=== PATIENT | female | born 1965 | race Caucasian/White ===

== ENCOUNTER → 2017-01-31 | Outpatient (CLI) | payer BC ==
--- NOTE | 2017-02-01 07:37 | US ---
EXAMINATION TYPE: US transvaginal DATE OF EXAM: 01/31/2017 COMPARISON: Previous study dated 04/01/2015. CLINICAL HISTORY: N95.0 Post menopausal bleeding. TECHNIQUE: Transvaginal (TV) Date of LMP: 3-4 years ago EXAM MEASUREMENTS: Uterus: 8.8 x 4.7 x 5.1 cm Endometrial Stripe: 0.3 cm Right Ovary: 3.3 x 2.4 x 2.2 cm Left Ovary: 1.8 x 1.1 x 1.1 cm 1. Uterus: Anteverted Heterogeneous echotexture 2. Endometrium: wnl 3. Right Ovary: Cyst visualized measuring 2.1 x 1.8 x 1.6 cm 4. Left Ovary: wnl 5. Bilateral Adnexa: wnl 6. Posterior cul-de-sac: wnl There is a nabothian cyst in the anterior lip of the cervix. IMPRESSION: 1. HETEROGENOUS UTERUS MAY REFLECT ADENOMYOSIS. 2. NABOTHIAN CYSTS. 3. 2.1 CM RIGHT OVARIAN CYST, LIKELY PHYSIOLOGIC.
== END | disposition home or self-care (01) ==
LOC: RADUSMAIN 17:51
PROVIDERS: ATTEND Family Medicine
DX: N88.8 Other specified noninflammatory disorders of cervix uteri (principal); N83.201 Unspecified ovarian cyst, right side
CPT/HCPCS: 76830

== ENCOUNTER → 2017-02-24 | Outpatient (CLI) | payer BC ==
--- NOTE | 2017-02-24 12:16 | US ---
EXAMINATION TYPE: US transvaginal DATE OF EXAM: 02/24/2017 COMPARISON: US 2017 CLINICAL HISTORY: N95.0 POST MENOPAUSAL BLEEDING. Followup US from 01/31/2017 US. Patient stated had only one episode vaginal bleeding. TECHNIQUE: Transvaginal (TV) Date of LMP: Approximately 3-4 years ago EXAM MEASUREMENTS: Uterus: 8.0 x 5.5 x 4.8cm cm Endometrial Stripe: 0.7 cm Right Ovary: 2.3 x 1.9 x 1.3 cm Left Ovary: not seen today 1. Uterus: Anteverted ; multiple small Nabothian cysts in CX with largest = 06 x 0.7 x 0.4cm. 2. Endometrium: abnormally thickened as is > 0.5cm and measured in 2 views 3. Right Ovary: simple cyst = 0.8 x 1.0 x 1.3cm 4. Left Ovary: not identified today 5. Bilateral Adnexa: wnl 6. Posterior cul-de-sac: wnl IMPRESSION: 1. Abnormal endometrial thickening in a postmenopausal female. Further evaluation with direct visuali zation is suggested. This may represent endometrial hyperplasia, endometrial carcinoma, or endometria l polyp. 2. Right ovarian follicle. No right ovarian cyst. 3. Nonvisualization of the left ovary.
== END ==
LOC: RADUSWWP 11:00
PROVIDERS: ATTEND Family Medicine
DX: R93.8 Abnormal findings on diagnostic imaging of other specified body structures (principal)
CPT/HCPCS: 76830

== ENCOUNTER 2017-06-27 10:00 | Day surgery (SDC) | payer BC ==
[2017-06-23 11:18] VITALS: BMI 42.3
[~2017-06-27 10:00] MED LIST: LACTATED RINGERS 1,000 ML IV SCH; Pre Op ABX Message 1 EACH MISC MISCELLANE ONE
[2017-06-27] MEDS ORDERED: LIDOCAINE 1% 20 ML VIAL (10MG/ML) FOR IV START INTRADERMA ONE (11:28)
[2017-06-27] MEDS ORDERED: DEXAMETHASONE SOD PHOSPHATE 4 MG/ML 1 ML VIAL IVP ONE (11:32)
[2017-06-27] MEDS ORDERED: ONDANSETRON 4 MG/2 ML VIAL IVP ONE (11:34)
[2017-06-27] MEDS ORDERED: PROPOFOL 10 MG/ML 20 ML VIAL IV ONE (12:07)
[2017-06-27] MEDS ORDERED: fentaNYL (PF) 50 MCG/ML 2 ML AMP ONE (12:07)
[2017-06-27] MEDS ORDERED: MIDAZOLAM 2 MG/2 ML VIAL ONE (12:07)
[2017-06-27] MEDS ORDERED: ACETAMINOPHEN IV (For NPO) 1,000 MG/100 ML VIAL ONE (12:07)
[2017-06-27] MEDS ORDERED: LIDOCAINE 1% INJ 10MG/ML (20 ML MDV) ONE (12:07)
[2017-06-27] MEDS ORDERED: SILVER NITRATE APPLICATOR 1 EACH STICK..EA. TOPICAL ONE (12:26)
--- NOTE | 2017-06-27 12:33 | P.OP ---
Date of Procedure: 06/27/17 Preoperative Diagnosis: pmb Postoperative Diagnosis: same Anesthesia: MAC Surgeon: Kaitlyn Duarte Estimated Blood Loss (ml): 10 IV fluids (ml): 400 Urine output (ml): 25 Pathology: other (endometrial currettings) Condition: stable Disposition: PACU Indications for Procedure: PMB, normal emb done in the office with normal US Operative Findings: Normal appearing endometrial cavity Description of Procedure: Patient was taken to the operating room after informed consent was obtained in the preoperative area. Gen. anesthesia was then obtained by the anesthesia Department without difficulty. She was then prepped and draped in normal sterile fashion in the dorsal lithotomy position. Weighted speculum posterior vaginal vault and the red rubber catheter was used to drain the bladder cleared all urine. The anterior lip of the cervix was then grasped with a single-tooth tenaculum and endocervical canal was then dilated to a sound was used to obtain a length of 8 cm. At this time the endocervical canal was then dilated to [place] 18-Malaysian and hysteroscope was placed into the endometrial canal, toward the uterine cavity. A normal-appearing endometrial cavity was noted. Hysteroscope was removed and a sharp curettage was performed until gritty texture was noted in all 4 quadrants the uterine cavity. At this point the NovaSure device was opened and set to the appropriate measurements for the recent uterine cavity length of 47 years, with of 3.7 cm, a power of 81 with a time of 100 seconds was done after the cavity assessment was passed. Afterwards the device was removed without difficulty the tooth tenaculum was taken off of the cervix hemostasis was appreciated after silver nitrate was applied to tenaculum site. All counts were correct 2 patient tolerated procedure well, and she was then taken to the recovery room awake in stable condition.
[2017-06-27 12:47] VITALS: TEMP 97.8
[2017-06-27] MEDS ORDERED: HYDROmorphone 0.5 MG/0.5 ML SYRINGE IVP ONE ×4 (13:13→13:50)
[2017-06-27] MEDS ORDERED: LACTATED RINGERS 1,000 ML IV ONE (13:14)
[2017-06-27 14:30] VITALS: RESP 18
[2017-06-27 15:43] VITALS: BP 124/64; PULSE 66
== END 2017-06-27 15:57 | disposition home or self-care (01) ==
LOC: OR 10:00
PROVIDERS: ATTEND Obstetrics & Gynecology Obstetrics
DX: N95.0 Postmenopausal bleeding (principal); N87.9 Dysplasia of cervix uteri, unspecified; N72 Inflammatory disease of cervix uteri; Z88.6 Allergy status to analgesic agent; Z88.0 Allergy status to penicillin; Z83.3 Family history of diabetes mellitus; Z82.49 Family history of ischemic heart disease and other diseases of the circulatory system; Z80.41 Family history of malignant neoplasm of ovary
CPT/HCPCS: 58563; 88305; J2250; J1100; J2405; J2001; J3010; J0131; J2704; J1170

== ENCOUNTER → 2018-10-31 | Outpatient (CLI) | payer BC ==
--- NOTE | 2018-11-02 08:25 | MM ---
Reason for exam: screening (asymptomatic). Last mammogram was performed 6 years and 10 months ago. History: Took hormonal contraceptives for 15 years beginning at age 18. Physical Findings: A clinical breast exam by your physician is recommended on an annual basis and results should be correlated with mammographic findings. MG Screening Mammo w CAD Bilateral CC and MLO view(s) were taken. Prior study comparison: December 23, 2011, [facility] DIGITAL RIGHT MAMMOGRAM w/CAD. November 21, 2011, bilateral digital screening mammo w/CAD. There are scattered fibroglandular densities. No significant changes when compared with prior studies. ASSESSMENT: Negative, BI-RAD 1 RECOMMENDATION: Routine screening mammogram of both breasts in 1 year.
== END | disposition home or self-care (01) ==
LOC: RADMAMWWP 13:26
PROVIDERS: ATTEND Family Medicine
DX: Z12.31 Encounter for screening mammogram for malignant neoplasm of breast (principal)
CPT/HCPCS: 77067

== ENCOUNTER → 2021-07-26 | Outpatient (CLI) | payer BC ==
--- NOTE | 2021-07-26 13:33 | MM ---
Reason for exam: screening (asymptomatic). Last mammogram was performed 2 years and 9 months ago. History: Family history of breast cancer in maternal aunt. Took hormonal contraceptives for 15 years beginning at age 18. Physical Findings: A clinical breast exam by your physician is recommended on an annual basis and results should be correlated with mammographic findings. MG Screening Mammo w CAD Bilateral CC and MLO view(s) were taken. XCCL view(s) were taken of the left breast. Prior study comparison: October 31, 2018, bilateral MG screening mammo w CAD. December 23, 2011, [facility] DIGITAL RIGHT MAMMOGRAM w/CAD. There are scattered fibroglandular densities. There is no discrete abnormality. ASSESSMENT: Negative, BI-RAD 1 RECOMMENDATION: Routine screening mammogram of both breasts in 1 year.
== END | disposition home or self-care (01) ==
LOC: RADMAMWWP 08:01
PROVIDERS: ATTEND Family Medicine
DX: Z12.31 Encounter for screening mammogram for malignant neoplasm of breast (principal); Z80.3 Family history of malignant neoplasm of breast
CPT/HCPCS: 77067

== ENCOUNTER → 2024-01-22 | Outpatient (CLI) | payer BC ==
--- NOTE | 2024-01-28 12:09 | MM ---
Reason for Exam: Screening (asymptomatic). Last mammogram was performed 2 year(s) and 6 month(s) ago. Patient History: Menarche at age 14. First Full-Term at age 25. Postmenopausal. Patient has history of breast feeding. Hormonal Contraceptives, starting at age 18 for 15 years. Maternal aunt had breast cancer. Risk Values: Kalyani 5 year model risk: 1.1%. NCI Lifetime model risk: 7.2%. Prior Study Comparison: 12/23/2011 Right Diagnostic Mammogram, [facility]. 10/31/2018 Bilateral Screening Mammogram, [facility]. 07/26/2021 Bilateral Screening Mammogram, [facility]. Tissue Density: There are scattered areas of fibroglandular density. Findings: Analyzed By CAD. The pattern is symmetrical. No significant interval change. No suspicious groups of microcalcifications, spiculated or lobular masses, architectural distortion or other secondary signs of malignancy are mammographically apparent. Overall Assessment: Benign, BI-RAD 2 Management: Screening Mammogram of both breasts in 1 year. A negative mammogram report should not preclude additional follow up of suspicious palpable abnormalities. Patient should continue monthly self breast exam. A clinical breast exam by your physician is recommended on an annual basis and results should be correlated with mammographic findings. Note on Kalyani scores and lifetime risk: 1. A Kalyani score greater than 3% is considered moderate risk. If this is the case, consider specialist referral to assess eligibility for a risk reducing agent. 2. If overall lifetime risk for the development of breast cancer is 20% or higher, the patient may qualify for future screening with alternating mammogram and breast MRI. Electronically signed and approved by: Caden Savage D.O. Radiologis
== END | disposition home or self-care (01) ==
LOC: RADMAMWWP 14:33
PROVIDERS: ATTEND Family Medicine
DX: Z12.31 Encounter for screening mammogram for malignant neoplasm of breast (principal); R92.323 Mammographic fibroglandular density, bilateral breasts; Z78.0 Asymptomatic menopausal state; Z80.3 Family history of malignant neoplasm of breast
CPT/HCPCS: 77063; 77067

== ENCOUNTER → 2024-02-22 | Outpatient (CLI) | payer BC | END | disposition home or self-care (01) | LOC: LABPRL 14:39 | PROVIDERS: ATTEND Family Medicine | DX: R35.0 Frequency of micturition (principal) | CPT/HCPCS: 87086 ==